=== PATIENT | male | born 1990 | race Caucasian/White ===

== ENCOUNTER 2019-10-04 20:12 | Emergency (ER) | payer OTHER ==
[~2019-10-04] VITALS: Ht 175.3 cm; Wt 86.2 kg
[~2019-10-04 20:12] MED LIST: AUGMENTIN 500-1 EACH PO; HYDROCODONE-AP1 EAC6 PO; IBUPROFEN 800800 M1 PO
[2019-10-04 20:18] VITALS: BP 189/89
[2019-10-04] MEDS ORDERED: CIPRODEX OTIC7.5 ML OTIC (20:28)
[2019-10-04] MEDS ORDERED: KEFLEX500 M1 PO (20:28)
[2019-10-04] MEDS ORDERED: NORCO 5-325 TA1 EAC1 PO (20:28)
== END 2019-10-04 20:34 | disposition home or self-care (01) ==
LOC: M.ERS 20:12
DX: H66.91 Otitis media, unspecified, right ear (principal); H60.91 Unspecified otitis externa, right ear; J45.909 Unspecified asthma, uncomplicated; M19.90 Unspecified osteoarthritis, unspecified site

== ENCOUNTER 2020-09-19 19:07 | Emergency (ER) | payer BC, OTHER ==
[~2020-09-19] VITALS: Ht 175.3 cm; Wt 95.3 kg
[~2020-09-19 19:07] MED LIST changes: +CIPRODEX OTIC7.5 ML OTIC; +KEFLEX500 M1 PO; +NORCO 5-325 TA1 EAC1 PO
[2020-09-19] MEDS ORDERED: LISINOPRIL2.5 MG PO (19:27)
[2020-09-19 19:50] LABS: ABSOLUTE BASOPHILS 0.1 thou/uL (0.0-0.2); ABSOLUTE EOSINOPHILS 0.4 thou/uL (0.0-0.7); ABSOLUTE LYMPHOCYTES 3.4 thou/uL (0.8-5.3); ABSOLUTE MONOCYTES 0.9 thou/uL (0.0-1.2); ABSOLUTE NEUTROPHILS 5.3 thou/uL (1.6-8.1); BASOPHILS 0.8 %; EOSINOPHILS 4.4 %; HEMATOCRIT 46.4 % (42.0-52.0); HEMOGLOBIN 15.4 gm/dL (14.0-18.0); LYMPHOCYTES 33.6 %; MCH 27.6 pg (26.0-34.0); MCHC 33.2 g/dL (28.0-37.0); MCV 83.3 fL (80.0-100.0); MONOCYTES 8.9 %; MPV 8.1 fl. (7.2-11.1); NUCLEATED RBCS 0 /100WBC; PLATELET COUNT* 296 thou/uL (150-400); POLYS 52.3 %; RBC 5.57 mil/uL (4.50-6.00); RDW-CV 12.7 % (10.5-14.5); WBC 10.2 thou/uL (4.0-11.0)
[2020-09-19 20:01] LABS: APTT 28.9 Seconds (25.0-31.3); PROTIME 10.3 Seconds (9.20-11.50)
[2020-09-19 20:04] LABS: CALCIUM 8.9 mg/dL (8.5-10.1); CREATININE 0.8 mg/dL (0.6-1.3); POTASSIUM 3.7 mmol/L (3.5-5.1)
[2020-09-19 20:09] LABS: ALBUMIN 4.4 g/dL (3.4-5.0); TOTAL BILIRUBIN 0.3 mg/dL (<0.1-1.0); TOTAL PROTEIN 8.5 g/dL (6.4-8.2)
[2020-09-19] MEDS ORDERED: HYDROCHLOROTHIA25 M2 PO (22:09)
[2020-09-19 22:37] VITALS: BP 151/87
--- NOTE | 2020-09-20 09:49 | EKG ---
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1990 Requested By: Woody Aguirre Order Number: [id number] MD: Zac Camp Measurements Intervals [place] Rate: 93 P: 19 TX: 147 QRS: 55 QRSD: 93 T: -30 QT: 340 QTc: 423 Interpretive Statements Sinus rhythm Borderline T abnormalities, inferior leads Borderline ST elevation, anterior leads Compared to ECG 11/26/2016 12:39:12 ST (T wave) deviation now present T-wave abnormality still present Electronically Signed On 09-20-2020 9:49:27 CDT by Zac Camp [email or web address] <ELECTRONICALLY SIGNED> By: Zac Camp MD, FACC 09/20/20 0949 10 10 Zac Capm MD, FAC /EPI
== END 2020-09-19 22:38 | disposition home or self-care (01) ==
LOC: M.ERS 19:07
PROVIDERS: Personal Emergency Response Attendant
DX: R07.9 Chest pain, unspecified (principal); I16.0 Hypertensive urgency; J45.909 Unspecified asthma, uncomplicated; M19.90 Unspecified osteoarthritis, unspecified site; Z79.899 Other long term (current) drug therapy

== ENCOUNTER 2021-01-15 10:58 | Emergency (ER) | payer OTHER ==
[~2021-01-15] VITALS: Ht 175.3 cm; Wt 90.7 kg
[~2021-01-15 10:58] MED LIST changes: +HYDROCHLOROTHIA25 M2 PO; +LISINOPRIL2.5 MG PO
[2021-01-15 11:26] LABS: ABSOLUTE BASOPHILS 0.1 thou/uL (0.0-0.2); ABSOLUTE EOSINOPHILS 0.5 thou/uL (0.0-0.7); ABSOLUTE LYMPHOCYTES 2.2 thou/uL (0.8-5.3); ABSOLUTE MONOCYTES 0.9 thou/uL (0.0-1.2); ABSOLUTE NEUTROPHILS 5.9 thou/uL (1.6-8.1); BASOPHILS 0.8 %; EOSINOPHILS 5.1 %; HEMATOCRIT 47.3 % (42.0-52.0); HEMOGLOBIN 15.9 gm/dL (14.0-18.0); MCH 27.4 pg (26.0-34.0); MCHC 33.6 g/dL (28.0-37.0); MCV 81.7 fL (80.0-100.0); MONOCYTES 9.1 %; MPV 8.1 fl. (7.2-11.1); NUCLEATED RBCS 0 /100WBC; PLATELET COUNT* 313 thou/uL (150-400); RBC 5.79 mil/uL (4.50-6.00); WBC 9.6 thou/uL (4.0-11.0)
[2021-01-15 11:38] LABS: APTT 26.9 Seconds (25.0-31.3); PROTIME 10.3 Seconds (9.20-11.50)
[2021-01-15 11:43] LABS: URINE BILIRUBIN NEGATIVE (Negative); URINE BLOOD NEGATIVE (Negative); URINE CLARITY CLEAR; URINE COLOR YELLOW; URINE GLUCOSE-RANDOM NEGATIVE (Negative); URINE KETONES NEGATIVE (Negative); URINE LEUKOCYTES-REFLEX NEGATIVE (Negative); URINE NITRITE-REFLEX NEGATIVE (Negative); URINE PROTEIN NEGATIVE (Negative)
[2021-01-15 12:02] LABS: AMP/METHAMP Negative (Negative); BARBITURATES Negative (Negative); BENZODIAZEPINES Negative (Negative); COCAINE Negative (Negative); METHADONE Negative (Negative); OPIATES Negative (Negative); PCP Negative (Negative); THC POSITIVE (Negative)
[2021-01-15 12:08] LABS: ALBUMIN 4.2 g/dL (3.4-5.0); ALKALINE PHOSPHATASE 132 U/L (46-116); ANION GAP 13 mmol/L (7-16); CHLORIDE 104 mmol/L (98-107); CO2 24 mmol/L (21-32); NT-PRO BRAIN NAT PEPTIDE < 5 pg/mL (<300); POTASSIUM 3.7 mmol/L (3.5-5.1); SGOT 45 U/L (15-37); SGPT 100 U/L (30-65); SODIUM 141 mmol/L (136-145); TOTAL BILIRUBIN 0.3 mg/dL (<0.1-1.0); TOTAL PROTEIN 7.6 g/dL (6.4-8.2)
[2021-01-15 12:27] LABS: CALCIUM 9.4 mg/dL (8.5-10.1); CREATININE 0.9 mg/dL (0.6-1.3); GLUCOSE 100 mg/dL (70-99)
[2021-01-15 12:37] LABS: BUN 13 mg/dL (7-18); MAGNESIUM 2.2 mg/dL (1.8-2.4)
[2021-01-15 13:35] VITALS: BP 138/86
--- NOTE | 2021-01-15 15:35 | EKG ---
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1990 Requested By: Sissy Domingo Order Number: [id number] MD: Zac Camp Measurements Intervals [place] Rate: 103 P: 61 TN: 149 QRS: 37 QRSD: 99 T: -90 QT: 323 QTc: 423 Interpretive Statements Sinus tachycardia Nonspecific T abnormalities, diffuse leads Compared to ECG 09/19/2020 19:11:24 Sinus rate has increased T-wave abnormality still present Electronically Signed On 01-15-2021 15:35:30 [employer] by Zac Camp [email or web address] <ELECTRONICALLY SIGNED> By: Zac Camp MD, FAC 01/15/21 1535 1100 1100 Zac Camp MD, [facility] /EPI
== END 2021-01-15 13:41 | disposition home or self-care (01) ==
LOC: M.ERS 10:58
PROVIDERS: Nurse Practitioner Family
DX: R07.89 Other chest pain (principal); R06.02 Shortness of breath; R61 Generalized hyperhidrosis; E66.9 Obesity, unspecified; J45.909 Unspecified asthma, uncomplicated; I10 Essential (primary) hypertension; M19.90 Unspecified osteoarthritis, unspecified site; Z20.822 Contact with and (suspected) exposure to COVID-19; Z68.29 Body mass index [BMI] 29.0-29.9, adult